=== PATIENT | male | born 1995 | race Caucasian/White ===

== ENCOUNTER 2016-12-14 01:12 | Emergency (ER) | payer SELFPAY ==
[~2016-12-14] VITALS: Ht 182.9 cm; Wt 94.1 kg
[2016-12-14] MEDS ORDERED: DOXYCYCLINE HY100 MG PO (03:11)
[2016-12-14] MEDS ORDERED: HYCODAN SYRUP480 ML PO (03:11)
[2016-12-14 03:36] VITALS: BP 123/66
== END 2016-12-14 03:36 | disposition home or self-care (01) ==
LOC: EME 01:12
DX: J18.9 Pneumonia, unspecified organism (principal)
CPT/HCPCS: 71020; 99281; 99284